=== PATIENT | female | born 1985 | race Caucasian/White ===

== ENCOUNTER 2019-05-18 15:30 | Day surgery (SDC) | payer BC ==
[2019-05-18 16:18] VITALS: BMI 26.1
[2019-05-18] MEDS ORDERED: hydrALAZINE 20 MG/ML VIAL SLOW IVP PRN (16:38)
--- NOTE | 2019-05-18 16:40 | PDOC.LDHP ---
Labor and Delivery H&P Chief complaint: decreased movement HPI: Patient of bob vilchis Time: 1645 Here for decreased FM Patient sent by bob vilchis for surveillance. EGA: 38-39 weeks. No LOF, no VB, no trauama. no issues. Current gestational age (weeks): 38 (to 39) Due date: 05/25/19 Dating criteria: last menstrual period Grav: 1 Current complications: none Abnormal US findings: No Current medications: pre- vitamins Previous surgical history: none Allergies/Adverse Reactions: Allergies Allergy/AdvReac Type Severity Reaction Status Date / Time No Known Allergies Allergy Verified 05/18/19 16:08 - Physical Exam Vital signs reviewed and normal: yes (118/67 pulse 80 100% 18) General: NAD Heart: RRR Lungs: CTAB Abdomen: gravid Extremeties: no edema FHT: category 1 [place] contractions every: iregular every 3-6 minutes - Assessment Decreased FM at early term, no sxs of CTX...NST reactive - Plan Plan: observation in L&D (NST reassurring. We will check CX. I reviewed the NST with them. patient had sono 2 days ago at [facility] with EFW 33% and normal SKYLA. No SXS CTX. We will check CX due to irregular CTX on toco.)
--- NOTE | 2019-05-18 16:48 | PDOC.EVN ---
Event Note - Event Note Event Note: No cervical dilation per Oralia, I am at bedside during exam. CX=0/10/-1 to 0...BOWI baby with normal FHR response to exam
== END 2019-05-18 16:55 | disposition home or self-care (01) ==
LOC: L&D/OP 15:30
PROVIDERS: ATTEND Advanced Practice Midwife
DX: O36.8130 Decreased fetal movements, third trimester, not applicable or unspecified (principal); Z3A.38 38 weeks gestation of pregnancy; Z79.899 Other long term (current) drug therapy
CPT/HCPCS: 99282

== ENCOUNTER 2019-05-19 12:22 | Inpatient (IN) | payer BC ==
[2019-05-19 13:21] LABS: Amnisure Test RUPTURE DETECTED (No Rupture)
[2019-05-19 13:22] LABS: Amnisure Internal Control QC ACCEPTABLE (ACCEPTABLE)
[2019-05-19] MEDS ORDERED: Ibuprofen 800 MG TAB PO PRN (13:59)
[2019-05-19] MEDS ORDERED: Promethazine HCl 25 MG/ML VIAL IM PRN (13:59)
[2019-05-19] MEDS ORDERED: hydrALAZINE 20 MG/ML VIAL SLOW IVP PRN (13:59)
[2019-05-19] MEDS ORDERED: Butorphanol Tartrate 1 MG/ML VIAL SLOW IVP PRN (13:59)
[2019-05-19] MEDS ORDERED: HYDROcodone/Acetaminophen 5/325 mg Tablet PO PRN ×2 (13:59)
[2019-05-19] MEDS ORDERED: Lidocaine 1% (PF) 30 ML VIAL SC PRN (13:59)
[2019-05-19] MEDS ORDERED: NS / Oxytocin 40 units/1000ml 1,000 ML IV PRN (13:59)
[2019-05-19] MEDS ORDERED: Misoprostol 200 MCG TAB PR PRN (13:59)
[2019-05-19] MEDS ORDERED: Ondansetron PF 4 MG/2 ML Vial IVP PRN (13:59)
--- NOTE | 2019-05-19 14:04 | PDOC.LDHP ---
Labor and Delivery H&P Chief complaint: loss of fluid HPI: Patient report sudden loss of clear shiny fluid at midnight on 05/19/19. She stayed home with mild contractions and good movement until 1200 the same day. Her contractions are only very mild and have since slowed considerably. Current gestational age (weeks): 39 Due date: 05/25/19 Dating criteria: last menstrual period Grav: 1 Para: 0 Current complications: none Abnormal US findings: No Current medications: pre-patria vitamins, other (zyrtec 10mg tab PO QD) Allergies/Adverse Reactions: Allergies Allergy/AdvReac Type Severity Reaction Status Date / Time No Known Allergies Allergy Verified 05/18/19 16:08 Social history: none - Physical Exam Vital signs reviewed and normal: yes General: NAD Heart: RRR Lungs: nonlabored breathing Abdomen: gravid Extremeties: no edema FHT: category 1 - Vaginal Exam cm dilated: 1 Effacement: 90% Station: -1 - OB Labs Blood type: O RH: negative Antibody Screen: negative HIV: negative RPR: negative HEPSAg: negative 1 hour GCT: negative GBS: negative Urine drug screen: negative Rubella: immune Additional Labs: NEGATIVE factor V Leiden workup - Assessment L&D Assessment: term rupture in membranes - Plan Plan: admit to L&D, cervical ripening, labor augmentation if indicated -: 5 Dilataria inserted into cervix for cervical ripening. Antibiotics if febrile. Start Pitocin at 2359 on 05/19/19 i fnot in active labor. Low intervention protocols unless augmentation is needed.
[2019-05-19 14:43] LABS: Hemoglobin 13.2 g/dL (12.0-16.0); Mean Corpuscular HGB CONC 33.7 g/dL (32.0-36.0); Mean Corpuscular Hemoglobin 30.7 pg (27.0-31.0); Mean Platelet Volume 8.3 fL (7.4-10.4); Platelet Count 194 thou/uL (130-400)
[2019-05-19 14:59] VITALS: BMI 25.7
[2019-05-19 15:31] LABS: Hep B Surf Ag Non-Reactive S/CO (NonReactive); Syphilis Antibody Nonreactive (Nonreactive); Syphilis Antibody Index 0.06 S/CO (<1.00 Non-Reactive)
[2019-05-19] MEDS ORDERED: NS w/ Oxytocin 10 units 500 ML IV SCH (23:59)
[2019-05-20] MEDS: Lactated Ringer's 1,000 ML IV PRN ×2 (01:00→01:45)
[2019-05-20] MEDS ORDERED: Fentanyl 4 mcg/Bup 0.1% Cadd 100 ML ONE ×2 (01:31→08:38)
[2019-05-20] MEDS ORDERED: Lactated Ringer's 500 ML IV PRN (02:30)
[2019-05-20] MEDS ORDERED: diphenhydrAMINE 50 MG/ML VIAL IVP PRN (02:30)
[2019-05-20] MEDS ORDERED: ePHEDrine/0.9% NaCl/PF SYRINGE 50 mg/10 ml SLOW IVP PRN (02:30)
[2019-05-20] MEDS ORDERED: Naloxone HCl 0.4 mg/ml Vial IVP PRN ×2 (02:30)
[2019-05-20] MEDS ORDERED: Ondansetron PF 4 MG/2 ML Vial IVP PRN ×2 (02:30→12:26)
[2019-05-20] MEDS ORDERED: Acetaminophen 325 MG TAB PO PRN (02:30)
[2019-05-20] MEDS ORDERED: Fentanyl 4 mcg/Bupivacaine 0.1% Cassette 100 ML EPIDURAL SCH (02:30)
[2019-05-20] MEDS ORDERED: Communication Order-Pharmacy FS SCH (02:30)
[2019-05-20] MEDS ORDERED: Promethazine HCl 25 MG/ML VIAL IM PRN (02:30)
--- NOTE | 2019-05-20 09:19 | PDOC.LDPN ---
Labor & Delivery Progress Note - Subjective Subjective: vaginal pressure - Objective Abnormal vital signs: Febrile 100.8. BP 113/55, 95pulse General: NAD Dilation: 10 Effacement: 100% Station: 1+ FHT: category 2 ( tachycardia, moderate variabilty) AROM: clear fluid Resuscitative measures: maternal IV fluids (antibiotics) - Assessment (1) Primigravida Code(s): Z34.00 - ENCNTR FOR SUPRVSN OF NORMAL FIRST , UNSP TRIMESTER Current Visit: Yes Status: Acute (2) Chorioamnionitis Code(s): O41.1290 - CHORIOAMNIONITIS, UNSP TRIMESTER, NOT APPLICABLE OR UNSP Current Visit: Yes Status: Acute (3) tachycardia Code(s): EAI0188 - Current Visit: Yes Status: Acute Plan: resuscitative measures, other (Start antibiotics for chorio. Begin second stage. Jeffry notified. auction clerk notified. )
[2019-05-20] MEDS: Ampicillin 2 GM in Sodium Chloride 0.9% 100 ML IVPB SCH ×2 (09:48→17:24)
[2019-05-20] MEDS: Clindamycin/D5W 900 MG in Premix Bag 1 BAG IVPB SCH ×2 (10:07→18:08)
--- NOTE | 2019-05-20 10:30 | PDOC.OPDEL ---
OB Operative/Delivery Note Delivery Dr/Surgeon: Carey Marcelino Pre-Delivery Diagnosis: ruptured membrane (Augmentation of labor, tachycardia, chorioamnionitis. primigravida.), other Weeks gestation: 39 Anesthesia: epidural - Findings A Sex: male Weight: 7 lb 7 oz - 1 min: 7 - 5 min: 9 - Additional Findings/Plan Placenta delivered: spontaneous Repaired Obstetrical Laceration: 2nd degree Estimated blood loss: 253mL QBL Compilations/Other Findings: tachycardia - category 2 FHT 2nd degree lacerations. Neonatology team at delivery chorioamnionitis Post delivery plan: routine recovery (continue ABX x 24 hours.)
[2019-05-20] MEDS: Gentamicin Sulfate 290 MG in Sodium Chloride 0.9% 100 ML IVPB SCH (11:34)
[2019-05-20] MEDS ORDERED: Adacel (T-DAP) 0.5 ML SYRINGE IM ONE (12:26)
[2019-05-20] MEDS ORDERED: NS / Oxytocin 40 units/1000ml 1,000 ML IV SCH (12:26)
[2019-05-20] MEDS ORDERED: Benzocaine-Menthol 82.5 ML CAN TOP PRN (12:26)
[2019-05-20] MEDS ORDERED: Milk Of Magnesia 30 ML UDCUP PO PRN (12:26)
[2019-05-20] MEDS ORDERED: Methylergonovine 0.2 MG/ML VIAL IM PRN (12:26)
[2019-05-20] MEDS ORDERED: Bisacodyl 10 MG SUPP PR PRN (12:26)
[2019-05-20] MEDS ORDERED: hydrALAZINE 20 MG/ML VIAL SLOW IVP PRN (12:26)
[2019-05-20] MEDS ORDERED: HYDROcodone/Acetaminophen 5/325 mg Tablet PO PRN ×2 (12:26)
[2019-05-20] MEDS: Ibuprofen 800 MG TAB PO SCH ×2 (14:06→21:02)
[2019-05-20] MEDS: Ferrous Sulfate 325 MG TAB PO SCH (17:24)
[2019-05-20] MEDS: Docusate Calcium (SURFAK) 240 MG CAP PO SCH (21:02)
[2019-05-21] MEDS: Ampicillin 2 GM in Sodium Chloride 0.9% 100 ML IVPB SCH ×3 (00:05→13:22)
[2019-05-21] MEDS: Clindamycin/D5W 900 MG in Premix Bag 1 BAG IVPB SCH ×2 (03:01→10:28)
[2019-05-21] MEDS ORDERED: Lactated Ringer's 1,000 ML IV SCH (04:00)
[2019-05-21] MEDS: Ibuprofen 800 MG TAB PO SCH ×3 (05:50→21:19)
[2019-05-21 06:36] LABS: Hemoglobin 10.3 g/dL (12.0-16.0)
[2019-05-21] MEDS ORDERED: Sodium Chloride 0.9% 10 ML ONE ×2 (08:38→10:22)
[2019-05-21] MEDS: Ferrous Sulfate 325 MG TAB PO SCH ×2 (08:45→18:07)
[2019-05-21] MEDS: Docusate Calcium (SURFAK) 240 MG CAP PO SCH ×2 (08:50→21:19)
[2019-05-21] MEDS: Gentamicin Sulfate 290 MG in Sodium Chloride 0.9% 100 ML IVPB SCH (13:21)
--- NOTE | 2019-05-21 17:15 | PDOC.PP ---
Post Progress Note Post Day #: 1 Subjective: Pt is doing well. Sore bottom, but is moving better than she was yesterday. Had a little struggle with , so she had started pumping and ginette damaged her nipples. PO intake tolerated: yes Flatus: yes Ambulation: yes Vital Signs (12 hours) Temp Pulse Resp BP Pulse Ox 05/21/19 16:28 98.6 F 80 20 99/51 L 05/21/19 13:30 97.8 F 86 20 112/53 L 98 05/21/19 12:43 98 05/21/19 08:16 97.7 F 83 20 95/53 L 97 05/21/19 07:45 97 Weight Weight 145 lb - Physical Examination General: NAD Cardiovascular: no m/r/g Respiratory: non-labored breathing Abdominal: + bowel sounds, lochia (minimal) Fundus firm & at: at umbilicus Skin: no rash Perineum: intact, minimal edema Neurological: no gross focal deficits Psychiatric: A&Ox3, normal affect Result Diagrams: 05/21/19 06:26 Additional Labs: Post Labs Blood Type O POSITIVE 05/19/19 14:57 Hep Bs Antigen Non-Reactive S/CO (NonReactive) 05/19/19 14:32 (1) Primigravida Code(s): Z34.00 - ENCNTR FOR SUPRVSN OF NORMAL FIRST , UNSP TRIMESTER Status: Acute (2) Chorioamnionitis Code(s): O41.1290 - CHORIOAMNIONITIS, UNSP TRIMESTER, NOT APPLICABLE OR UNSP Status: Acute (3) tachycardia Code(s): WZL7529 - Status: Acute - Assessment/Plan Stop ABX . observe over next 24 hours for signs of infection. Discharge home tomorrow if indicated by reassuring patient status.
[2019-05-21 23:01] VITALS: TEMP 98.2
[2019-05-22] MEDS: Ibuprofen 800 MG TAB PO SCH (04:59)
[2019-05-22 08:35] VITALS: BP 104/61
[2019-05-22] MEDS: Docusate Calcium (SURFAK) 240 MG CAP PO SCH (09:30)
[2019-05-22] MEDS: Ferrous Sulfate 325 MG TAB PO SCH (09:31)
--- NOTE | 2019-05-22 10:04 | PDOC.PP ---
Post Progress Note Post Day #: 2 Subjective: Patient is doing well. Moving around better. PO intake tolerated: yes Flatus: yes Ambulation: yes Vital Signs (12 hours) Temp Pulse Resp BP Pulse Ox 05/22/19 08:33 98.2 F 76 20 104/61 99 05/22/19 07:45 99 Weight Weight 145 lb - Physical Examination General: NAD Cardiovascular: no m/r/g, RRR Respiratory: non-labored breathing Abdominal: + bowel sounds Extremities: negative homans (B) Skin: no rash Neurological: no gross focal deficits Psychiatric: A&Ox3, normal affect Result Diagrams: 05/21/19 06:26 Additional Labs: Post Labs Blood Type O POSITIVE 05/19/19 14:57 Hep Bs Antigen Non-Reactive S/CO (NonReactive) 05/19/19 14:32 (1) Primigravida Code(s): Z34.00 - ENCNTR FOR SUPRVSN OF NORMAL FIRST , UNSP TRIMESTER Status: Acute (2) Chorioamnionitis Code(s): O41.1290 - CHORIOAMNIONITIS, UNSP TRIMESTER, NOT APPLICABLE OR UNSP Status: Acute (3) tachycardia Code(s): IZQ8087 - Status: Acute (4) (spontaneous vaginal delivery) Code(s): O80 - ENCOUNTER FOR FULL-TERM UNCOMPLICATED DELIVERY Status: Acute (5) Second degree laceration of perineum, delivered, current hospitalization Code(s): O70.1 - SECOND DEGREE PERINEAL LACERATION DURING DELIVERY Status: Acute - Assessment/Plan A: G1 now P1 s/p complicated by prolonged rupture of membranes, chorioamnionitis, and a 2nd degree perineal laceration P: Discharge home today. Call office with any fevers or signs or endometritis (reviewed with pt).
== END 2019-05-22 12:45 | disposition home or self-care (01) | DRG 805 ==
LOC: L&D/OP 12:22 → L&D-LIB 13:58 → L&D 05-20 02:01 → 3SW 05-20 12:51
PROVIDERS: ADMIT Student in an Organized Health Care Education/Training Program; ATTEND Student in an Organized Health Care Education/Training Program
PROC: 10E0XZZ Delivery of Products of Conception, External Approach (ICD-10-PCS; principal; 2019-05-20)
PROC: 0KQM0ZZ Repair Perineum Muscle, Open Approach (ICD-10-PCS; 2019-05-20)
DX: O76 Abnormality in fetal heart rate and rhythm complicating labor and delivery (principal); O41.1230 Chorioamnionitis, third trimester, not applicable or unspecified; Z37.0 Single live birth; O70.1 Second degree perineal laceration during delivery; Z3A.39 39 weeks gestation of pregnancy
CPT/HCPCS: 36415; 51702; 82805; 84112; 85014; 85018; 85027; 86780; 86850; 86900; 86901; 87340; 88307; 90715; 99282; 99285; J0290; J1580; J2001; J2405; J2590; J3490

== ENCOUNTER 2019-07-04 13:47 | Outpatient (CLI) | payer BC ==
--- NOTE | 2019-07-04 14:55 | ULT ---
THYROID ULTRASOUND: 07/04/19 INDICATION: Palpable left sided thyroid nodule. COMPARISON: None. TECHNIQUE: Bhardwaj scale, color Doppler images were obtained of the thyroid gland. FINDINGS: The right thyroid lobe measures 5.1 x 1.5 x 1.5 cm. There is a small 2 mm cyst seen within the right mid thyroid gland. Thyroid isthmus measures 0.23 cm. The left thyroid lobe measures 4.0 x 1.1 x 1.0 cm. There is a large well circumscribed partially exo phytic isoechoic or hyperechoic, smooth, noncalcified solid nodule of the left thyroid gland. The nod ule measures 3.1 x 1.6 x 2 cm. No additional focal nodule is evident. IMPRESSION: TI-RADS 3 lesion of the left thyroid gland. This lesion appears to arise from the superior aspect of the left thyroid lobe but it does extend exophytically along the anterior aspect of the left thyroid gland. The lesion is greater than 2.5 cm; therefore, ultrasound guided FNA is recommended for additio nal characterization. POS: OFF
== END 2019-07-04 13:48 | disposition home or self-care (01) ==
LOC: BICULT 13:47
PROVIDERS: ATTEND Advanced Practice Midwife
DX: E04.1 Nontoxic single thyroid nodule (principal); E07.89 Other specified disorders of thyroid
CPT/HCPCS: 76536

== ENCOUNTER 2020-01-27 10:44 | Outpatient (CLI) | payer BC ==
--- NOTE | 2020-01-27 11:06 | ULT ---
THYROID ULTRASOUND INDICATION: Thyroid nodule TECHNIQUE: Grayscale and color Doppler images were obtained of the thyroid gland. COMPARISON: Thyroid ultrasound dated July 04, 2019 FINDINGS: Right thyroid lobe: The right thyroid lobe measures 4.7 x 1.8 x 1.8 cm. Thyroid isthmus: The thyroid isthmus measures 0.37 cm. Left thyroid lobe: The left thyroid lobe measures 4.2 x 2.5 x 1.5 cm cm. The hyperechoic solid nodule involving the left mid thyroid lobe is increased in size now measuring 3.3 x 1.9 cm were previously measured 3.0 x 1.6 cm IMPRESSION: 1. Enlarging TIRADS 3 nodule involving the left thyroid lobe. Ultrasound-guided FNA is recommended fo r further characterization.
== END 2020-01-27 10:45 | disposition home or self-care (01) ==
LOC: BICULT 10:44
PROVIDERS: ATTEND Otolaryngology Plastic Surgery within the Head & Neck
DX: E04.1 Nontoxic single thyroid nodule (principal)
CPT/HCPCS: 76536

== ENCOUNTER 2020-05-12 08:06 | Outpatient (CLI) | payer BC ==
--- NOTE | 2020-05-12 08:52 | ULT ---
US Thyroid STANDARD: 05/12/2020 12:00 AM CLINICAL INDICATION: Thyroid nodule. COMPARISON: 07/19/2019 and 07/04/2019 FINDINGS: Right and left thyroid lobes are normal in size and echotexture. The right thyroid lobe measures 4.5 cm and the left thyroid lobe measures 4.8cm. There is a well-circumscribed mixed solid/cystic nodule in the left lobe of the thyroid measuring 3.7 cm in greatest dimension. This appears larger than on the prior examination. No cervical lymphadenopathy is noted. IMPRESSION: Enlarging left thyroid nodule
== END 2020-05-12 08:07 | disposition home or self-care (01) ==
LOC: BICULT 08:06
PROVIDERS: ATTEND Otolaryngology Plastic Surgery within the Head & Neck
DX: E04.1 Nontoxic single thyroid nodule (principal)
CPT/HCPCS: 76536